=== PATIENT | female | born 1975 | race Two or more races ===

== ENCOUNTER 2018-02-08 15:48 | Inpatient (IN) | payer OTHER ==
[2018-02-08 21:27] VITALS: BMI 17.2
--- NOTE | 2018-02-08 21:52 | HP ---
CIWA Score - CIWA Score Nausea/Vomitin Muscle Tremors: 2 Anxiety: 3 Agitation: 4-Moderately Restless Paroxysmal Sweats: 1-Minimal Palms Moist Orientation: 1-Uncertain about Date Tacttile Disturbances: 0-None Auditory Disturbances: 0-None Visual Disturbances: 1-Very Mild Sensitivity Headache: 2-Mild CIWA-Ar Total Score: 16 Admission ROS S - HPI Chief Complaint: alcohol withdrawal sx Allergies/Adverse Reactions: Allergies Allergy/AdvReac Type Severity Reaction Status Date / Time No Known Allergies Allergy Verified 02/08/18 21:58 History of Present Illness: Patient is a 42 yo female with hx nicotine, crack / cocaine and alcohol dependence is here seeking detox for the first time in this facility. PMHX: asthma, AIDS ( non compliant with medications), anxiety, depression, bipolar. Patient unable to recall medications taken at home. Denies suicidal / homicidal ideation or suicide attempts in the past. Last detox 2 months ago in [place], does not recall the name of the facility. Reports no significant periods of sobriety. Denies hx of blackouts or seizures. Exam Limitations: No Limitations - Ebola screening Have you traveled outside of the country in the last 21 days: No (N) Have you had contact with anyone from an Ebola affected area: No Have you been sick,other than usual withdrawal symptoms: No Do you have a fever: No - Review of Systems Constitutional: Chills, Loss of Appetite, Changes in sleep, Unintentional Wgt. Loss (lost 80 lbs) EENT: reports: Blurred Vision (daniel glasses) Respiratory: reports: No Symptoms reported Cardiac: reports: No Symptoms Reported GI: reports: Nausea, Poor Appetite, Poor Fluid Intake, Vomiting, Abdominal cramping : reports: No Symptoms Reported Musculoskeletal: reports: No Symptoms Reported Integumentary: reports: No Symptoms Reported Neuro: reports: Headache Endocrine: reports: Increased Thirst Hematology: reports: See HPI Psychiatric: reports: Orientated x3, Depressed Other Systems: Reviewed and Negative Patient History - Patient Medical History Hx Anemia: No Hx Asthma: Yes Hx Chronic Obstructive Pulmonary Disease (COPD): No Hx Cancer: No Hx Cardiac Disorders: No Hx Congestive Heart Failure: No Hx Hypertension: No Hx Hypercholesterolemia: No Hx Pacemaker: No HX Cerebrovascular Accident: No Hx Seizures: No Hx Dementia: No Hx Diabetes: No Hx Gastrointestinal Disorders: No Hx Liver Disease: No Hx Genitourinary Disorders: No Hx Sexually Transmitted Disorders: Yes (HIV) Hx Renal Disease (ESRD): No Hx Thyroid Disease: No Hx Human Immunodeficiency Virus (HIV): Yes (AIDS 2004) Hx Hepatitis C: No Hx Depression: Yes Hx Suicide Attempt: No Hx Bipolar Disorder: Yes Hx Schizophrenia: No - Patient Surgical History Past Surgical History: No - PPD History Previous Implant?: Yes Documented Results: Negative w/o proof Implanted On Prior [facility] Admission?: No PPD to be Administered?: Yes - Reproductive History Patient is a Female of Child Bearing Age (11 -55 yrs old): No (post manopausal no menses since 15 yo ) Patient : No - Smoking Cessation Smoking history: Current every day smoker Have you smoked in the past 12 months: Yes Aproximately how many cigarettes per day: 10 Hx Chewing Tobacco Use: No Initiated information on smoking cessation: Yes 'Breaking Loose' booklet given: 02/08/18 - Substance & Tx. History Hx Alcohol Use: Yes Hx Substance Use: Yes Substance Use Type: Alcohol, Cocaine Hx Substance Use Treatment: Yes (Last detox 2 months ago in [place], does not recall the name of the facility) - Substances Abused Alcohol Route: Oral Frequency: Daily Amount used: 12 pack of beer Age of first use: 11 Date of Last Use: 02/08/18 Crack Route: Smoking Frequency: Daily Amount used: $50 - $100 Age of first use: 11 Date of Last Use: 02/06/18 Family Disease History - Family Disease History Family Disease History: Heart Disease: Mother (alive , HTN ), Other: Father ( alive and well ), Mother Admission Physical Exam [facility] - Vital Signs Vital Signs: Vital Signs - 24 hr 02/08/18 21:25 Temperature 98.9 F Pulse Rate 97 H Respiratory 18 Rate Blood Pressure 139/79 - Physical General Appearance: Yes: Disheveled, Mild Distress, Cachetic, Anxious HEENTM: Yes: EOMI, Hearing grossly Normal, Normal ENT Inspection, Normocephalic , Normal Voice, CECIL, Pharynx Normal, Tm's normal, Other (chelithis) Respiratory: Yes: Chest Non-Tender, Lungs Clear, Normal Breath Sounds, No Respiratory Distress, No Accessory Muscle Use Neck: Yes: Within Normal Limits Breast: Yes: Breast Exam Deferred Cardiology: Yes: Regular Rhythm, Regular Rate Abdominal: Yes: Normal Bowel Sounds, Non Tender, Flat, Soft Genitourinary: Yes: Within Normal Limits Back: Yes: Normal Inspection Musculoskeletal: Yes: full range of Motion, Gait Steady, Pelvis Stable Extremities: Yes: Normal Capillary Refill, Normal Inspection, Normal Range of Motion Neurological: Yes: weld engineer II-XII NML intact, Fully Oriented, Alert, Motor Strength 5/5, Depressed Affect Integumentary: Yes: Normal Color, Warm, Diaphoresis Lymphatic: Yes: Within Normal Limits - Diagnostic (1) Alcohol dependence with withdrawal Current Visit: Yes Status: Acute Qualifiers: Complication of substance-induced condition: uncomplicated Qualified Code(s ): F10.230 - Alcohol dependence with withdrawal, uncomplicated (2) AIDS Current Visit: Yes Status: Chronic (3) Depressed mood Current Visit: Yes Status: Acute (4) Dehydration Current Visit: Yes Status: Acute (5) Unintended weight loss Current Visit: Yes Status: Acute (6) Cocaine dependence Current Visit: Yes Status: Acute (7) Nicotine dependence Current Visit: Yes Status: Acute Qualifiers: Nicotine product type: cigarettes Cleared for Admission [facility] - Detox or Rehab [facility] Level of Care: Medically Managed Detox Regimen/Protocol: Librium [facility] Breath Alcohol Content Breath Alcohol Content: 0 Urine Pregancy Test - Result Urine Test Results: Negative- NO Line Present Urine Drug Screen - Results Drug Screen Negative: No Urine Drug Screen Results: BRETT-Cocaine
[2018-02-08] MEDS ORDERED: MAGNESIUM HYDROX 2400MG/30ML ORAL SUSPENSION 30 ML CUP PO PRN (22:00)
[2018-02-08] MEDS ORDERED: guaiFENesin/D-METHORPHAN HB 10 ML UNIT-DOSE CUPS PO PRN (22:00)
[2018-02-08] MEDS ORDERED: MAG HYDROX/AL HYDROX/SIMETH 30 ML UNIT-DOSE CUP PO PRN (22:00)
[2018-02-08] MEDS ORDERED: hydrOXYzine PAMOATE 25 MG CAPSULE (FP) PO PRN (22:00)
[2018-02-08] MEDS ORDERED: P-EPHED 60MG/TRIPROLIDI 2.5MG TABLET PO PRN (22:00)
[2018-02-08] MEDS ORDERED: MELATONIN 5 MG TABLETS PO PRN (22:00)
[2018-02-08] MEDS ORDERED: MENTHOL/PHENOL 1 EACH UD MM PRN (22:00)
[2018-02-08] MEDS ORDERED: NICOTINE POLACRILEX 2 MG GUM BC PRN (22:00)
[2018-02-08] MEDS ORDERED: IBUPROFEN 400 MG TABLET (FP) PO PRN (22:00)
[2018-02-08] MEDS ORDERED: LOPERAMIDE HCL 2 MG CAPSULE PO PRN (22:00)
[2018-02-08] MEDS ORDERED: ACETAMINOPHEN 325 MG TABLET (FP) PO PRN (22:00)
[2018-02-08] MEDS ORDERED: chlordiazePOXIDE HCL 25 MG CAPSULE PO ONE (22:00)
[2018-02-08] MEDS ORDERED: MAGNESIUM CITRATE 300 ML BOTTLE PO PRN (22:00)
[2018-02-08] MEDS ORDERED: chlordiazePOXIDE HCL 25 MG CAPSULE PO PRN (22:00)
[2018-02-09] MEDS: chlordiazePOXIDE HCL 25 MG CAPSULE PO SCH ×5 (01:28→23:01)
[2018-02-09] MEDS: THIAMINE HCL 100 MG TABLET (FP) PO SCH ×2 (01:37→23:02)
[2018-02-09 02:35] LABS: URINE APPEARANCE CLEAR; URINE BILIRUBIN NEGATIVE (<2.0 mg/dL); URINE COLOR LTYELLOW; URINE GLUCOSE (UA) NEGATIVE (NEGATIVE); URINE KETONE NEGATIVE (NEGATIVE); URINE NITRITE NEGATIVE (NEGATIVE); URINE PROTEIN NEGATIVE (NEGATIVE); URINE UROBILINOGEN NEGATIVE mg/dL (0.2-1.0)
[2018-02-09 02:39] LABS: URINE LEUK ESTERASE 2+ (NEGATIVE)
[2018-02-09 02:40] LABS: EPI CELLS FEW /HPF (FEW); URINE BACTERIA RARE /hpf (NONE SEEN)
--- NOTE | 2018-02-09 09:51 | PN ---
[facility] CIWA - CIWA Score Nausea/Vomitin-Mild Nausea/No Vomiting Muscle Tremors: 4-Moderate,w/Arms Extend Anxiety: 3 Agitation: 3 Paroxysmal Sweats: 1-Minimal Palms Moist Orientation: 0-Oriented Tacttile Disturbances: 1-Very Mild Itch/Numbness Auditory Disturbances: 0-None Visual Disturbances: 0-None Headache: 0-None Present CIWA-Ar Total Score: 13 [facility] Progress Note (SOAP) Subjective: sweat tremor anxiety restlessness irritable Objective: 02/09/18 09:50 Vital Signs Temperature 96.1 F L 02/09/18 09:13 Pulse Rate 96 H 02/09/18 09:13 Respiratory Rate 16 02/09/18 09:13 Blood Pressure 108/63 02/09/18 09:13 O2 Sat by Pulse Oximetry (%) Laboratory Last Values Urine Color Ltyellow 02/08/18 23:59 Urine Appearance Clear 02/08/18 23:59 Urine pH 7.0 (5.0-8.0) 02/08/18 23:59 Ur Specific [place] 1.010 (1.001-1.035) 02/08/18 23:59 Urine Protein Negative (NEGATIVE) 02/08/18 23:59 Urine Glucose (UA) Negative (NEGATIVE) 02/08/18 23:59 Urine Ketones Negative (NEGATIVE) 02/08/18 23:59 Urine Blood Negative (NEGATIVE) 02/08/18 23:59 Urine Nitrite Negative (NEGATIVE) 02/08/18 23:59 Urine Bilirubin Negative (<2.0 mg/dL) 02/08/18 23:59 Urine Urobilinogen Negative mg/dL (0.2-1.0) 02/08/18 23:59 Ur Leukocyte Esterase 2+ (NEGATIVE) H 02/08/18 23:59 Urine WBC (Auto) 6 /hpf (3-5) 02/08/18 23:59 Urine RBC (Auto) 2 /hpf (0-3) 02/08/18 23:59 Ur Epithelial Cells Few /HPF (FEW) 02/08/18 23:59 Urine Bacteria Rare /hpf (NONE SEEN) 02/08/18 23:59 lab noted 02/09/18 09:51 repeat ua Assessment: 02/09/18 09:50 withdrawal sx Plan: continue detox repeat ua personal hygiene
[2018-02-09 10:01] LABS: HEMATOCRIT 27.8 % (32.4-45.2); HEMOGLOBIN 8.8 GM/dL (10.7-15.3); MCH 23.9 pg (25.7-33.7); MCHC 31.6 g/dl (32.0-36.0); MEAN CELL VOLUME 75.7 fl (80-96); MEAN PLT VOLUME 8.1 fl (7.5-11.1); PLATELET COUNT 324 K/MM3 (134-434); RBC 3.67 M/mm3 (3.60-5.2); RDW 19.8 % (11.6-15.6); WHITE BLOOD COUNT 3.5 K/mm3 (4.0-10.0)
[2018-02-09 10:22] LABS: CHLORIDE 110 mmol/L (98-107); POTASSIUM 3.3 mmol/L (3.5-5.1); SODIUM 141 mmol/L (136-145)
--- NOTE | 2018-02-09 10:23 | CONSULT ---
[facility] Psychiatric Consult - Data Date of interview: 02/09/18 Admission source: [facility] Identifying data: Patient is a 42 year old single female, without kids, unemployed (not receiving financial assistance), and currently homeless. This is patient's first admission to detox. Patient admitted to for alcohol and cocaine dependence. Substance Abuse History: Smoking Cessation. Smoking history: Current every day smoker. Have you smoked in the past 12 months: Yes. Aproximately how many cigarettes per day: 10. Hx Chewing Tobacco Use: No. Initiated information on smoking cessation: Yes. 'Breaking Loose' booklet given: 02/08/18. - Substance & Tx. History. Hx Alcohol Use: Yes. Hx Substance Use: Yes. Substance Use Type : Alcohol, Cocaine. Hx Substance Use Treatment: Yes (Last detox 2 months ago in [place], does not recall the name of the facility). - Substances Abused. Alcohol. Route: Oral. Frequency: Daily. Amount used: 12 pack of beer. Age of first use: 11. Date of Last Use: 02/08/18. Crack. Route: Smoking. Frequency: Daily. Amount used: $50 - $100. Age of first use: 11. Date of Last Use: 02/06/18 Medical History: Asthma, HIV Psychiatric History: Patient guarded throughout interview. Patient denies h/o psychiatric hospitalization, outpatient care, and suicide attempt. Physical/Sexual Abuse/Trauma History: Denies. Mental Status Exam - Mental Status Exam Alert and Oriented to: Time, Place, Person Cognitive Function: Good Patient Appearance: Unkempt, Disheveled Mood: Withdrawn Affect: Mood Congruent Patient Behavior: Guarded Speech Pattern: Delayed, Slurred Voice Loudness: Moderately Soft/Quiet Thought Process: Goal Oriented Thought Disorder: Not Present Hallucinations: Denies Suicidal Ideation: Denies Homicidal Ideation: Denies Insight/Judgement: Poor Sleep: Fair Appetite: Poor Muscle strength/Tone: Normal Gait/Station: Normal Psychiatric Findings - Problem List ([place] 1, 2,3) (1) Substance induced mood disorder Current Visit: Yes Status: Acute (2) Alcohol dependence with withdrawal Current Visit: Yes Status: Acute Qualifiers: Complication of substance-induced condition: uncomplicated Qualified Code(s ): F10.230 - Alcohol dependence with withdrawal, uncomplicated (3) Cocaine dependence Current Visit: Yes Status: Acute (4) Nicotine dependence Current Visit: Yes Status: Acute Qualifiers: Nicotine product type: cigarettes - Initial Treatment Plan Initial Treatment Plan: Psychoeducation provided. Detoxification in progress. Observation.
[2018-02-09 10:28] LABS: ALBUMIN 2.7 g/dl (3.4-5.0); ALK PHOS 120 U/L (45-117); ANION GAP 8 (8-16); BILIRUBIN,TOTAL 0.2 mg/dL (0.2-1.0); BLOOD UREA NITROGEN 12 mg/dL (7-18); CALCIUM 8.1 mg/dL (8.5-10.1); CO2 23 mmol/L (21-32); GLUCOSE,RANDOM 72 mg/dL (74-106); SGOT/AST 15 U/L (15-37); SGPT/ALT 12 U/L (12-78); TOT PROT 8.7 g/dl (6.4-8.2)
[2018-02-09] MEDS ORDERED: cloNIDine HCL 0.1 MG TABLET PO PRN (11:41)
[2018-02-09] MEDS: NICOTINE 14 MG/24 HOURS TOPICAL PATCH TD SCH (12:35)
[2018-02-09] MEDS: PRENATAL VITAMINS W/ FOLIC ACID TABLET (FP) PO SCH (12:35)
[2018-02-10] MEDS: chlordiazePOXIDE HCL 25 MG CAPSULE PO SCH ×3 (06:37→17:40)
[2018-02-10] MEDS ORDERED: POTASSIUM CHLORIDE TABS 20 MEQ TABLET.ER (FP) PO SCH (10:00)
[2018-02-10] MEDS: PRENATAL VITAMINS W/ FOLIC ACID TABLET (FP) PO SCH (10:40)
[2018-02-10] MEDS: NICOTINE 14 MG/24 HOURS TOPICAL PATCH TD SCH (10:40)
--- NOTE | 2018-02-10 13:36 | PN ---
S CIWA - CIWA Score Nausea/Vomitin-No Nausea/No Vomiting Muscle Tremors: 2 Anxiety: 2 Agitation: 0-Normal Activity Paroxysmal Sweats: 2 Orientation: 0-Oriented Tacttile Disturbances: 1-Very Mild Itch/Numbness Auditory Disturbances: 0-None Visual Disturbances: 1-Very Mild Sensitivity Headache: 0-None Present CIWA-Ar Total Score: 8 [facility] Progress Note (SOAP) Subjective: alert,anxious,interrupted sleep, sweats Patient report she is on HIV antivirals but is unable to recall the name of her medications or pharmacy Reports no urinary sx Objective: 02/10/18 13:33 Vital Signs Temperature 99.5 F 02/10/18 10:00 Pulse Rate 117 H 02/10/18 10:00 Respiratory Rate 18 02/10/18 10:00 Blood Pressure 108/70 02/10/18 10:00 O2 Sat by Pulse Oximetry (%) Laboratory Last Values WBC 3.5 K/mm3 (4.0-10.0) L 02/09/18 07:30 RBC 3.67 M/mm3 (3.60-5.2) 02/09/18 07:30 Hgb 8.8 GM/dL (10.7-15.3) L 02/09/18 07:30 Hct 27.8 % (32.4-45.2) L 02/09/18 07:30 MCV 75.7 fl (80-96) L 02/09/18 07:30 MCH 23.9 pg (25.7-33.7) L 02/09/18 07:30 MCHC 31.6 g/dl (32.0-36.0) L 02/09/18 07:30 RDW 19.8 % (11.6-15.6) H 02/09/18 07:30 Plt Count 324 K/MM3 (134-434) 02/09/18 07:30 MPV 8.1 fl (7.5-11.1) 02/09/18 07:30 Sodium 141 mmol/L (136-145) 02/09/18 07:30 Potassium 3.3 mmol/L (3.5-5.1) L 02/09/18 07:30 Chloride 110 mmol/L (98-107) H 02/09/18 07:30 Carbon Dioxide 23 mmol/L (21-32) 02/09/18 07:30 Anion Gap 8 (8-16) 02/09/18 07:30 BUN 12 mg/dL (7-18) 02/09/18 07:30 Creatinine 1.0 mg/dL (0.55-1.02) 02/09/18 07:30 Creat Clearance w eGFR > 60 (>60) 02/09/18 07:30 Random Glucose 72 mg/dL (74-106) L 02/09/18 07:30 Calcium 8.1 mg/dL (8.5-10.1) L 02/09/18 07:30 Total Bilirubin 0.2 mg/dL (0.2-1.0) 02/09/18 07:30 AST 15 U/L (15-37) 02/09/18 07:30 ALT 12 U/L (12-78) 02/09/18 07:30 Alkaline Phosphatase 120 U/L (45-117) H 02/09/18 07:30 Total Protein 8.7 g/dl (6.4-8.2) H 02/09/18 07:30 Albumin 2.7 g/dl (3.4-5.0) L 02/09/18 07:30 Urine Color Ltyellow 02/08/18 23:59 Urine Appearance Clear 02/08/18 23:59 Urine pH 7.0 (5.0-8.0) 02/08/18 23:59 Ur Specific [place] 1.010 (1.001-1.035) 02/08/18 23:59 Urine Protein Negative (NEGATIVE) 02/08/18 23:59 Urine Glucose (UA) Negative (NEGATIVE) 02/08/18 23:59 Urine Ketones Negative (NEGATIVE) 02/08/18 23:59 Urine Blood Negative (NEGATIVE) 02/08/18 23:59 Urine Nitrite Negative (NEGATIVE) 02/08/18 23:59 Urine Bilirubin Negative (<2.0 mg/dL) 02/08/18 23:59 Urine Urobilinogen Negative mg/dL (0.2-1.0) 02/08/18 23:59 Ur Leukocyte Esterase 2+ (NEGATIVE) H 02/08/18 23:59 Urine WBC (Auto) 6 /hpf (3-5) 02/08/18 23:59 Urine RBC (Auto) 2 /hpf (0-3) 02/08/18 23:59 Ur Epithelial Cells Few /HPF (FEW) 02/08/18 23:59 Urine Bacteria Rare /hpf (NONE SEEN) 02/08/18 23:59 RPR Titer Nonreactive (NONREACTIVE) 02/09/18 07:30 labs reviewed, BMP, CBC, urine culture Assessment: 02/10/18 13:34 AOx3, mildly lethargic, no distress No adventitious breath sounds full ROM withdrawal sx Plan: continue detox BMP, CBC , urine culture continue to monitor
[2018-02-10] MEDS ORDERED: FLUCONAZOLE 150 MG TABLET PO ONE (15:19)
--- NOTE | 2018-02-10 15:24 | PN ---
[facility] Progress Note Note: Patient immunocompromised and + oral thrush no distress Vital Signs Temperature 99.9 F H 02/10/18 13:54 Pulse Rate 111 H 02/10/18 13:54 Respiratory Rate 16 02/10/18 13:54 Blood Pressure 121/72 02/10/18 13:54 O2 Sat by Pulse Oximetry (%) Plan: peridex rinse fluconazole loading dose 150 mg 02/10/18, then after 100 mg x 6 days increase fluids continue to monitor
[2018-02-10] MEDS ORDERED: FLUCONAZOLE 100 MG TABLET (UD) PO ONE (16:30)
[2018-02-10 17:43] VITALS: BP 129/80; PULSE 116; TEMP 99.8
--- NOTE | 2018-02-10 20:20 | PN ---
[facility] Progress Note Note: Patient is 42 yo female immunocompromised, restless, c/o generalized body aches , poor PO intake, difficulty swallowing, tx for thrush. Patient no adherent with AIDS medication regime, does recall medications taking at home Patient has has been running a fever and been very lethargic through the day. Vital Signs - 24 hr 02/09/18 02/10/18 02/10/18 21:02 03:30 06:00 Temperature 98.9 F 99.0 F Pulse Rate 116 H 110 H Respiratory 18 18 16 Rate Blood Pressure 109/66 118/67 02/10/18 02/10/18 02/10/18 10:00 13:54 17:43 Temperature 99.5 F 99.9 F H 99.8 F H Pulse Rate 117 H 111 H 116 H Respiratory 18 16 17 Rate Blood Pressure 108/70 121/72 129/80 recent vital signs at 8:00pm BP 116/76, P120, T10.15, RR 18 A/P Patient AOx3, thin, malnourished,lethargic + oral thrush lungs clear s1, s2, no jvd skin intact, no edema, erythema Plan: Patient to be evaluated at [facility] for ongoing fever, transferred via [facility], endorsed to Dr. Chavis
[2018-02-10] MEDS ORDERED: CHLORHEXIDINE GLUCONATE 0.12% 15ML CUP MM SCH (22:00)
[2018-02-10] MEDS ORDERED: chlordiazePOXIDE 5 MG CAPSULE PO SCH (23:00)
[2018-02-10] MEDS: THIAMINE HCL 100 MG TABLET (FP) PO SCH (23:58)
[2018-02-11] MEDS ORDERED: FLUCONAZOLE 100 MG TABLET (UD) PO SCH (10:00)
--- NOTE | 2018-02-11 22:47 | EKG ---
Test Reason : Blood Pressure : / mmHG Vent. Rate : 082 BPM Atrial Rate : 082 BPM P-R Int : 166 ms QRS Dur : 074 ms QT Int : 374 ms P-R-T Axes : 081 043 075 degrees QTc Int : 436 ms NORMAL SINUS RHYTHM NORMAL ECG NO PREVIOUS ECGS AVAILABLE Confirmed by ALBER ANDRADE MD ([id number]) on 02/11/2018 10:47:15 PM Referred By: Confirmed By:ALBER ANDRADE MD
[2018-02-11] MEDS ORDERED: chlordiazePOXIDE HCL 10 MG CAPSULE PO SCH (23:00)
== END 2018-02-10 08:30 | disposition short-term general hospital (02) | DRG 774 ==
LOC: YASAS 15:48 → Y6N 21:49
PROVIDERS: ADMIT Surgery; ATTEND Surgery
PROC: HZ2ZZZZ Detoxification Services for Substance Abuse Treatment (ICD-10-PCS; principal; 2018-02-08)
DX: F10.230 Alcohol dependence with withdrawal, uncomplicated (principal); F14.20 Cocaine dependence, uncomplicated; F17.210 Nicotine dependence, cigarettes, uncomplicated; F41.9 Anxiety disorder, unspecified; F19.24 Other psychoactive substance dependence with psychoactive substance-induced mood disorder; B20 Human immunodeficiency virus [HIV] disease; B37.0 Candidal stomatitis; E86.0 Dehydration; R63.4 Abnormal weight loss; Z68.1 Body mass index [BMI] 19.9 or less, adult
CPT/HCPCS: 36415; 80053; 81003; 81015; 85027; 86593; 93005; 93010